=== PATIENT | female | born 1960 | race Caucasian/White ===

== ENCOUNTER 2022-12-20 17:51 | Emergency (ER) | payer OTHER, SELFPAY ==
--- NOTE | 2022-12-20 18:08 | ED.ABDPAIN ---
HPI - Abdominal Pain General Chief Complaint: Abdominal Pain Stated Complaint: upper abdomen discomfort Time Seen by Provider: 12/20/22 18:07 Source: patient Mode of arrival: ambulatory Limitations: no limitations History of Present Illness HPI narrative: Lolita is a 62-year-old female patient presenting to the clinic today with complaints of upper abdominal pain x 2-3 days. She reports she is having a lot of burning and discomfort over the epigastric area. States that when she eats she is having a lot of discomfort as well. Is also having pain after eating when lying flat. She denies any bloody stools or hematemesis. Reports she does smoke a lot of marijuana. Last bowel movement was today and normal. Does have some nausea at times. Related Data Home Medications Medication Instructions Recorded Confirmed atorvastatin 10 mg tablet 10 mg PO DAILY 12/20/22 12/20/22 citalopram 40 mg tablet 40 mg PO DAILY 12/20/22 12/20/22 Allergies Allergy/AdvReac Type Severity Reaction Status Date / Time No Known Allergies Allergy Verified 12/20/22 18:22 Review of Systems Review of Systems: Pertinent positives per HPI. Patient denies any fever, chills, rash, headache, visual changes, dizziness, cough, runny nose, sore throat, shortness of breath, chest pain, palpitations, vomiting, diarrhea, constipation, or any urinary issues. PMFSH Comments At the time of my signature, I reviewed and agree with the nursing past medical, surgical, social, and family history. There is no relevant family history pertinent to the patient complaint. Exam Narrative: General: Well-developed, well nourished, in no apparent distress. Head: Normocephalic, atraumatic. Cardio: Regular rate and rhythm, s1 and s2 normal, no murmur appreciated. Resp: Clear to auscultation bilaterally, no rhonchi, rales, wheezing or rubs. Abdomen: Soft, pliable, bowel sounds present in all quadrants, tender to palpation over the midepigastric, no organomegly, no CVAT tenderness. Course Course Emergency Course: Portions of this record may have been created with voice recognition software. Level of Care: Express Care Visit Vital Signs Vital signs: Vital Signs Temperature 36.3 C L 12/20/22 18:17 Pulse Rate 83 12/20/22 18:17 Respiratory Rate 18 12/20/22 18:17 Blood Pressure 133/79 12/20/22 18:17 Pulse Oximetry 100 12/20/22 18:17 Oxygen Delivery Room Air 12/20/22 18:17 Temperature 36.3 C L 12/20/22 18:17 Pulse Rate 83 12/20/22 18:17 Respiratory Rate 18 12/20/22 18:17 Blood Pressure 133/79 12/20/22 18:17 Pulse Oximetry 100 12/20/22 18:17 Oxygen Delivery Room Air 12/20/22 18:17 Vital signs reviewed MDM - Abdominal Pain MDM Narrative Medical decision making narrative: At the time of visit patient is resting comfortably on exam table. I suspect the patient has GERD with possible early suspicion for peptic ulcer. 30 mL of Maalox and 15 mL of viscous lidocaine were given in the clinic to help with the discomfort. Prescription for pantoprazole and Carafate was sent to the pharmacy. EKG shows sinus rhythm with heart rate 69 beats per minute with a nonspecific ST and T-wave abnormalities. Supportive measures were discussed with the patient she voiced understanding of discharge instructions and agrees to treatment plan. Differential Diagnosis Differential diagnosis: Likely abdominal pain, gastroenteritis, pancreatitis and other (GERD, mid epigastric pain, peptic ulcer) ECG Data EKG #1: Attestation: I personally reviewed and interpreted this ECG as follows: ECG completion date: 12/20/22 ECG completion time: 18:32 Prior ECG tracings: not available for review Ischemic changes: non-specific ST-T wave changes Interpretation: EKG shows sinus rhythm with a heart rate of 69 beats per minute with a nonspecific ST and T-wave abnormality. UT interval is 170 milliseconds, QRS durations 98 milliseconds, QT-QT
[2022-12-20 18:17] VITALS: BP 133/79; PULSE 83; RESP 18; TEMP 36.3; O2SAT 100
--- NOTE | 2022-12-20 18:30 | ECG_ITS ---
Measurements Intervals [place] Rate: 69 P: 31 AR: 170 QRS: 23 QRSD: 98 T: -31 QT: 387 QTc: 416 Interpretive Statements SINUS RHYTHM NONSPECIFIC ST & T-WAVE ABNORMALITY NO PREVIOUS ECG AVAILABLE FOR COMPARISON Electronically Signed On 12-21-2022 11:30:58 COMMODITIES CLERK by Lorenzo Alanis M.D.
[2022-12-20] MEDS: LIDOCAINE HCL 2% VISC SOLN 15 ML UDC PO (18:40)
[2022-12-20] MEDS: MAG HYDROX/AL HYDROX/SIMETH 30 ML UDC PO (18:40)
== END 2022-12-20 18:48 | disposition home or self-care (01) ==
PROVIDERS: Emergency Provider Nurse Practitioner Family; PCP Family Medicine
DX: K21.9 Gastro-esophageal reflux disease without esophagitis (principal)
CPT/HCPCS: 93005; 99213; A9270; G0463